=== PATIENT | female | born 1985 | race Caucasian/White ===

== ENCOUNTER → 2023-08-25 13:09 | Outpatient (REF) | payer BC, SELFPAY | LOC: WDC 13:09 | PROVIDERS: ATTENDING PHYSICIAN Nurse Practitioner Family; FAMILY PHYSICIAN Internal Medicine | DX: R92.8 Other abnormal and inconclusive findings on diagnostic imaging of breast (principal); N63.10 Unspecified lump in the right breast, unspecified quadrant | CPT/HCPCS: 77061; 77065 ==

== ENCOUNTER → 2023-10-17 11:21 | Outpatient (REF) | payer BC, SELFPAY | LOC: HWRAD 11:21 | PROVIDERS: ATTENDING PHYSICIAN Internal Medicine | DX: R91.1 Solitary pulmonary nodule (principal) | CPT/HCPCS: 71250 ==